=== PATIENT | female | born 1960 | race Caucasian/White ===

== ENCOUNTER 2022-11-21 13:33 | Emergency (ER) | payer OTHER, SELFPAY ==
[2022-11-21 13:46] VITALS: BP 104/73; PULSE 125; RESP 20; TEMP 37.7; O2SAT 100
--- NOTE | 2022-11-21 14:33 | ED.URI ---
HPI - URI/Sore Throat General Chief Complaint: Upper Respiratory Infection Stated Complaint: nausea x 4 days Time Seen by Provider: 11/21/22 14:35 Source: patient, RN notes reviewed and old records reviewed Mode of arrival: ambulatory Limitations: no limitations History of Present Illness HPI Narrative: 62 year old female [facility] accompanied by daughter with complaints of nausea for the past 4 days, headache,body aches, some fevers and has had vomiting yesterday. Patient reports history of kidney stones in June for which she had surgical removal with stents placed and then removed. Patient denies any burning with urination or pain with urination at this time denies any back pain Patient report general malaise and she is pale in color. Daughter reports that mother was recently diagnosed with small Pituitary tumor. MD elicited complaint: other (nausea, headache, vomiting) Pertinent past history: other (kidney stones in June) Onset (ago): day(s) (4) Pain scale (0-10): 4 Able to tolerate fluids by mouth: Yes Treatments prior to arrival: none Related Data Home Medications Medication Instructions Recorded Confirmed No Home Medications 11/21/22 11/21/22 Allergies Allergy/AdvReac Type Severity Reaction Status Date / Time codeine AdvReac Intermediate vomiting Verified 11/21/22 13:59 Review of Systems Review of Systems: CONSTITUTIONAL:Reports fever, chills, or sweats. EYES: Denies visual changes, redness, or discharge. ENT: Denies rhinorrhea, congestion, sore throat, or otalgia. CARDIOVASCULAR: Denies chest pain, palpitations, or edema. RESPIRATORY: Denies cough or dyspnea. GASTROINTESTINAL: Denies abdominal pain,positive for nausea, vomiting, denies diarrhea. GENITOURINARY: Denies dysuria or hematuria. SKIN: Denies rash or itching. MUSCULOSKELETAL: Denies back pain, joint pain, or myalgia. NEUROLOGIC: Denies headache, numbness, or weakness. PSYCHIATRIC: Denies anxiety or depression. All systems reviewed & are unremarkable except as noted in HPI and below PMFSH Past Medical History Medical History (Updated 11/22/22 @ 12:49 by La Beavers NP) Kidney stones Pituitary tumor Surgical History Surgical History (Updated 11/22/22 @ 12:50 by La Beavers NP) S/P cystoscopy with ureteral stent placement kidney stone removal Social History Social History (Updated 11/22/22 @ 12:49 by La Beavers NP) Smoking status: Former smoker Alcohol intake: unknown Substance use type: does not use Living arrangements: with family Gender identity (if verbalized by the patient): Female Comments At time of signature, agree with nursing past medical, surgical, social and family history. There is no relevant family history pertinent to the presenting complaint Exam Narrative: GENERAL: chronic ill-appearing, well-nourished, and in no acute distress. HEAD: Normocephalic, atraumatic. EYES: PERRLA and EOMI. ENT: Nares clear, no rhinorrhea or epistaxis. Mucous membranes moist TM's normal throatpink with no swelling NECK: Supple. no lymphadenopathy CHEST: Clear to auscultation. No respiratory distress.SAO2 100% on room air HEART: Regular rate and rhythm. No murmur heard. Normal peripheral pulses. ABDOMEN: Soft, nontender to palpation , denies pain, nondistended, normal active bowel sounds.nausea and vomiting, denies any CVA tenderness EXTREMITIES: Normal range of motion. No edema. SKIN: Warm, dry, no rash. NEURO: No focal deficits. Alert and oriented x3. Course Course Emergency Course: Patient is aware of diagnosis, understands and agrees to treatment plan.? Anticipatory guidance given.? Patient agrees to follow-up as directed and is aware of reasons to seek care at the emergency department. Portions of this record may have been created with voice recognition software Level of Care: Express Care Visit Vital Signs Vital signs: Vital Signs Temperature 37.7 C H 11/21/22
== END 2022-11-21 15:01 | disposition short-term general hospital (02) ==
PROVIDERS: Emergency Provider Registered Nurse
DX: N39.0 Urinary tract infection, site not specified (principal); R11.2 Nausea with vomiting, unspecified; Z87.891 Personal history of nicotine dependence; Z20.822 Contact with and (suspected) exposure to COVID-19
CPT/HCPCS: 81003; 87077; 87086; 87186; 87426; 87804; 99203; C9803; G0463